=== PATIENT | male | born 1985 | race Two or more races ===

== ENCOUNTER 2020-04-26 08:50 | Emergency (ER) | payer SELFPAY ==
[~2020-04-26] VITALS: Ht 167.6 cm; Wt 60.3 kg
--- NOTE | 2020-04-26 09:07 | NUR ---
pt to er 9 ice applied to right hand
[2020-04-26] MEDS ORDERED: LIDOCAINE-MPF 1%, 5ML INFIL ONE (10:00)
[2020-04-26] MEDS ORDERED: NEOSPORIN OINT. PKT 1 PACKET ONE (10:22)
--- NOTE | 2020-04-26 11:36 | NUR ---
PT D/CD WITH INSTRUCTIONS
[2020-04-26 11:37] VITALS: BP 151/78
== END 2020-04-26 11:39 | disposition home or self-care (01) ==
LOC: ED 09:53
DX: S63.124A Dislocation of interphalangeal joint of right thumb, initial encounter (principal); S63.641A Sprain of metacarpophalangeal joint of right thumb, initial encounter; R55 Syncope and collapse; W18.39XA Other fall on same level, initial encounter; Y93.79 Activity, other specified sports and athletics; Y92.488 Other paved roadways as the place of occurrence of the external cause; Y99.8 Other external cause status
CPT/HCPCS: 26770; 70450; 99284